=== PATIENT | male | born 1995 | race Caucasian/White ===

== ENCOUNTER 2018-10-12 15:05 | Emergency (ER) | payer SELFPAY ==
[~2018-10-12] VITALS: Ht 180.3 cm; Wt 114.9 kg
[2018-10-12 15:09] VITALS: Ht 180.3 cm; Wt 114.9 kg
[2018-10-12 16:58] VITALS: BP 130/84
== END 2018-10-12 16:58 | disposition home or self-care (01) ==
LOC: ED 15:05
DX: J02.9 Acute pharyngitis, unspecified (principal); E03.9 Hypothyroidism, unspecified; H92.03 Otalgia, bilateral; Z88.2 Allergy status to sulfonamides